=== PATIENT | male | born 1945 | race Caucasian/White ===

== ENCOUNTER 2023-08-10 09:39 | Emergency (ER) | payer MEDICARE, OTHER ==
[2023-08-10] MEDS: Dexamethasone 4 MG/ML SDV IM ONE (12:05)
[2023-08-10] MEDS: Azithromycin 250 MG Tab PO ONE (12:05)
== END 2023-08-10 12:07 | disposition home or self-care (01) ==
LOC: DL.ED 09:39
DX: J02.9 Acute pharyngitis, unspecified (principal); I10 Essential (primary) hypertension; E11.9 Type 2 diabetes mellitus without complications
CPT/HCPCS: 87081; 87430; 96372; 99282; 99283; A9270; J1100

== ENCOUNTER 2023-08-12 10:36 | Emergency (ER) | payer MEDICARE, OTHER ==
[2023-08-12 11:22] LABS: ANION GAP 16.1 mEq/L (7-13); C-REACTIVE PROTEIN 1.72 ng/dL (<=0.50); CALCIUM 9.4 mg/dL (8.5-10.1); CREATININE 1.71 mg/dL (0.70-1.30); EST CRCL DRUG DOSING (CG) 32.75 mL/min; POTASSIUM,K 4.1 mmol/L (3.5-5.1)
[2023-08-12 11:26] LABS: BASOPHILS PERCENT AUTO 0.2 % (0.0-1.0); EOSINOPHILS PERCENT AUTO 0.7 % (1.0-3.0); HEMATOCRIT 38.9 % (40.0-54.0); HEMOGLOBIN 12.8 g/dL (14.0-18.0); LYMPHOCYTES PERCENT AUTO 11.4 % (20.5-50.1); MEAN CORPUSCULAR HEMOGLOBIN 31.9 pg (27.0-34.0); MEAN CORPUSCULAR HGB CONC 32.9 g/dL (33.0-35.0); MONOCYTES PERCENT AUTO 9.5 % (2-8); NEUTROPHILS PERCENT AUTO 78.2 % (42.2-75.2); PLATELET COUNT,PLT 308 10^3/uL (150-450); RED BLOOD CELL COUNT 4.01 10^6/uL (4.6-6.2); WHITE BLOOD CELL COUNT,WBC 5.7 10^3/uL (5.0-10.0)
[2023-08-12 11:28] LABS: LACTIC ACID 1.4 mmol/L (0.4-2.0)
[2023-08-12] MEDS: Sodium Chloride 0.9% 1,000 ML IV ONE ×2 (11:34→12:11)
[2023-08-12 11:55] LABS: CORONAVIRUS COVID-19 NAA NEGATIVE (NEGATIVE); INFLUENZA A NAA NEGATIVE (NEGATIVE); INFLUENZA B NAA NEGATIVE (NEGATIVE)
[2023-08-12] MEDS: Sodium Chloride 0.9% 10 ML Syringe FLUSH PRN (11:57)
[2023-08-12] MEDS: cefTRIAXone 2 GM Vial IVPUSH ONE (13:15)
[2023-08-12] MEDS: Dexamethasone 4 MG/ML SDV IVPUSH ONE (13:19)
== END 2023-08-12 13:35 | disposition home or self-care (01) ==
LOC: DL.ED 10:36
DX: K11.20 Sialoadenitis, unspecified (principal); B34.9 Viral infection, unspecified; E11.9 Type 2 diabetes mellitus without complications; I10 Essential (primary) hypertension
CPT/HCPCS: 0240U; 36415; 70490; 80048; 83605; 85025; 86140; 87040; 96361; 96374; 96375; 99284; J0696; J1100; J7030; J3490